=== PATIENT | female | born 1955 | race Caucasian/White ===

== ENCOUNTER 2018-03-04 11:08 | Day surgery (SDC) | payer OTHER | END 2018-03-04 17:00 | disposition home or self-care (01) | LOC: AMB-ENDOS 11:08 | DX: K62.1 Rectal polyp (principal); K64.8 Other hemorrhoids ==

== ENCOUNTER 2019-06-23 09:23 | Day surgery (SDC) | payer OTHER | END 2019-06-23 13:05 | disposition home or self-care (01) | LOC: AMB-ENDOS 09:23 → ADM 09:45 → AMB-ENDOS 13:05 | DX: K62.1 Rectal polyp (principal); K63.5 Polyp of colon; K64.8 Other hemorrhoids; K57.30 Diverticulosis of large intestine without perforation or abscess without bleeding; Z12.11 Encounter for screening for malignant neoplasm of colon ==

== ENCOUNTER 2022-07-01 08:52 | Day surgery (SDC) | payer OTHER | END 2022-07-01 15:50 | disposition home or self-care (01) | LOC: AMB-ENDOS 08:52 | PROVIDERS: ATTEND Colon & Rectal Surgery | DX: Z86.010 Personal history of colon polyps (principal); R19.4 Change in bowel habit; K64.8 Other hemorrhoids; Z20.822 Contact with and (suspected) exposure to COVID-19 ==